=== PATIENT | female | born 1945 | race Caucasian/White ===

== ENCOUNTER 2016-10-06 16:16 | Emergency (ER) | payer OTHER ==
--- NOTE | 2016-10-06 16:27 | PDOC ---
Rapid Medical Evaluation Time Seen by Provider: 10/06/16 16:24 Medical Evaluation: Allergies Allergy/AdvReac Type Severity Reaction Status Date / Time Penicillins Allergy Mild Rash Verified 04/18/16 15:15 10/06/16 16:24 71 yo F c/o LUQ pain since yesterday which progressed into unspecific cp, herrera. 1530hrs: Finger stick: 320 1540hrs: Took metformin 1000mg
[2016-10-06 16:28] VITALS: BP 148/76; PULSE 80; TEMP 99.6; BMI 28.7
[2016-10-06 17:23] LABS: BASOPHIL 0.4 % (0-2.0); EOSINOPHIL 0.7 % (0-4.5); MCH 29.5 pg (25.7-33.7); MCHC 33.5 g/dl (32.0-36.0); MEAN CELL VOLUME 88.1 fl (80-96); MEAN PLT VOLUME 10.8 fl (7.5-11.1); NEUTROPHILS 80.4 % (42.8-82.8); PLATELET COUNT 167 K/MM3 (134-434); RDW 13.2 % (11.6-15.6); WHITE BLOOD COUNT 8.2 K/mm3 (4.0-10.0)
[2016-10-06 17:46] LABS: ALBUMIN 3.8 g/dl (3.4-5.0); ANION GAP 6 (8-16); CALCIUM 9.1 mg/dL (8.5-10.1); CO2 31 mmol/L (21-32); CREATININE 0.9 mg/dL (0.55-1.02); GLUCOSE,RANDOM 160 mg/dL (74-106); SGOT/AST 13 U/L (15-37); SGPT/ALT 21 U/L (12-78); TOT PROT 6.8 g/dl (6.4-8.2)
[2016-10-06 17:48] LABS: ALK PHOS 81 U/L (45-117); TROPONIN I < 0.02 ng/ml (0.00-0.05)
--- NOTE | 2016-10-06 19:31 | PDOC ---
History of Present Illness - General History Source: Patient Exam Limitations: No Limitations - History of Present Illness Initial Comments: 10/06/16 19:49 The patient is a 71 year old female, with a significant past medical history of GERD, HTN, diabetes and TIA, who presents to the emergency department for evaluation of a headache. Describes her headache as localized on bilateral temples, radiating to the front of her head. She notes that the pain is moderate. She denies any modifying factors. She reports that she checked her Glucose today and was 200. In the ED her glucose was 160. She also reports left upper quadrant pain and chest palpitations that are both mild in severity. She notes that both pains resolved after a bowel movement. The patient denies chest pain, shortness of breath, and dizziness. Denies fever , chills, nausea, vomit, diarrhea and constipation. Denies dysuria, frequency, urgency and hematuria. Allergies: None Past surgical history: None reported Social history: No alcohol, tobacco or drug use reported PMD - Dr. Saul Jama <Mau Garza - Last Filed: 10/06/16 20:03> <Russ Wiggins - Last Filed: 10/06/16 20:08> - General Chief Complaint: Pain Stated Complaint: PCP SENT/BLOOD PRESSURE PROBLEM Time Seen by Provider: 10/06/16 16:24 Past History <Mau Garza - Last Filed: 10/06/16 20:03> - Past Medical History Cardiac Disorders: Yes (chest pain negative cardiac cath 2006) CVA: Yes (Possible mini stroke in the 90's) Diabetes: Yes HTN: Yes - Reproductive History Cervical CA: No Dysfunctional Uterine Bleeding: No Ectopic : No Endometrial CA: No Polycystic Ovaries: No Tubal Ligation: No - Immunization History Immunization Up to Date: Yes - Psycho/Social/Smoking Cessation Hx Anxiety: No Suicidal Ideation: No Smoking Status: No Smoking History: Never smoked Have you smoked in the past 12 months: No Number of Cigarettes Smoked Daily: 0 If you are a former smoker, when did you quit?: 35 yrs ago Information on smoking cessation initiated: No Hx Alcohol Use: No Drug/Substance Use Hx: No Substance Use Type: Alcohol Hx Substance Use Treatment: No <Russ Wiggins - Last Filed: 10/06/16 20:08> - Past Medical History Allergies/Adverse Reactions: Allergies Allergy/AdvReac Type Severity Reaction Status Date / Time Penicillins Allergy Mild Rash Verified 10/06/16 16:28 Home Medications: Ambulatory Orders Aspirin [ASA -] 81 mg PO DAILY 10/11/12 Carvedilol 25 mg PO BID 03/11/14 Amlodipine Besylate [Norvasc -] 10 mg PO DAILY 07/18/15 Ondansetron [Zofran -] 4 mg PO TID PRN #21 tablet 04/18/16 Meloxicam [Mobic (Nf) -] 15 mg PO DAILY 10/06/16 Metformin HCl [Glucophage] 1,000 mg PO BID 10/06/16 Abd/GI Specific PMHX - Complaint Specific PMHX GERD: No GI Ulcer Disease: No <Russ Wiggins - Last Filed: 10/06/16 20:08> Review of Systems - Review of Systems Able to Perform ROS?: Yes Comments:: 10/06/16 19:49 GENERAL/CONSTITUTIONAL: No fever or chills. No weakness. HEAD, EYES, EARS, NOSE AND THROAT: No change in vision. No ear pain or discharge. No sore throat. CARDIOVASCULAR: No chest pain or shortness of breath RESPIRATORY: No cough, wheezing, or hemoptysis. GASTROINTESTINAL: No nausea, vomiting, diarrhea or constipation. GENITOURINARY: No dysuria, frequency, or change in urination. MUSCULOSKELETAL: No joint or muscle swelling or pain. No neck or back pain. SKIN: No rash NEUROLOGIC: +Headache. No vertigo, loss of consciousness, or change in strength/ sensation. ENDOCRINE: No increased thirst. No abnormal weight change HEMATOLOGIC/LYMPHATIC: No anemia, easy bleeding, or history of blood clots. ALLERGIC/IMMUNOLOGIC: No hives or skin allergy. <Mau Garza - Last Filed: 10/06/16 20:03> *Physical Exam - Vital Signs Last Vital Signs Temp Pulse Resp BP Pulse Ox 99.6 F 80 18 148/76 95 10/06/16 16:22 10/06/16 16:22 10/06/16 16:22 10/06/16 16:22 10/06/16 16:22 - Physical Exam Comments: 10/06/16 19:49 GENERAL: Awake, alert, and fully oriented, in no acute distress HEAD: No signs of trauma, normocephalic, atraumatic EYES: PERRLA, EOMI, sclera anicteric, conjunctiva clear ENT: Auricles normal inspection, hearing grossly normal, nares patent, oropharynx clear without exudates. Moist mucosa NECK: Normal ROM, supple, no lymphadenopathy, JVD, or masses LUNGS: No distress, speaks full sentences, clear to auscultation bilaterally HEART: Regular rate and rhythm, normal S1 and S2, no murmurs, rubs or gallops, peripheral pulses normal and equal bilaterally. ABDOMEN: Soft, nontender, normoactive bowel sounds. No guarding, no rebound. No masses EXTREMITIES: Normal inspection, Normal range of motion, no edema. No clubbing or cyanosis. NEUROLOGICAL: Cranial nerves II through XII grossly intact. Normal speech, normal gait, no focal sensorimotor deficits SKIN: Warm, Dry, normal turgor, no rashes or lesions noted. <Mau Garza - Last Filed: 10/06/16 20:03> - Vital Signs Last Vital Signs Temp Pulse Resp BP Pulse Ox 99.6 F 80 18 148/76 95 10/06/16 16:22 10/06/16 16:22 10/06/16 16:22 10/06/16 16:22 10/06/16 16:22 <Russ Wiggins - Last Filed: 10/06/16 20:08> Heart Score/ECG Review #1 ECG reviewed & interpreted by me at: 19:43 10/06/16 19:22 Ventricular rate: 71 bpm Normal sinus rhythm Left axis deviation Septal infarct, age undetermined <Mau Garza - Last Filed: 10/06/16 20:03> ED Treatment Course - LABORATORY CBC & Chemistry Diagram: 10/06/16 16:48 10/06/16 16:48 - ADDITIONAL ORDERS Additional order review: Laboratory Results 10/06/16 16:48 Sodium 139 Potassium 4.9 Chloride 102 Carbon Dioxide 31 Anion Gap 6 L BUN 21 H D Creatinine 0.9 Creat Clearance w eGFR > 60 Random Glucose 160 H Calcium 9.1 Total Bilirubin 1.0 D AST 13 L ALT 21 Alkaline Phosphatase 81 Creatine Kinase 72 Troponin I < 0.02 Total Protein 6.8 Albumin 3.8 10/06/16 16:48 RBC 5.07 MCV 88.1 MCHC 33.5 RDW 13.2 MPV 10.8 Neutrophils % 80.4 Lymphocytes % 10.7 Monocytes % 7.8 Eosinophils % 0.7 Basophils % 0.4 <Mau Garza - Last Filed: 10/06/16 20:03> - LABORATORY CBC & Chemistry Diagram: 10/06/16 16:48 10/06/16 16:48 - ADDITIONAL ORDERS Additional order review: Laboratory Results 10/06/16 16:48 Sodium 139 Potassium 4.9 Chloride 102 Carbon Dioxide 31 Anion Gap 6 L BUN 21 H D Creatinine 0.9 Creat Clearance w eGFR > 60 Random Glucose 160 H Calcium 9.1 Total Bilirubin 1.0 D AST 13 L ALT 21 Alkaline Phosphatase 81 Creatine Kinase 72 Troponin I < 0.02 Total Protein 6.8 Albumin 3.8 10/06/16 16:48 RBC 5.07 MCV 88.1 MCHC 33.5 RDW 13.2 MPV 10.8 Neutrophils % 80.4 Lymphocytes % 10.7 Monocytes % 7.8 Eosinophils % 0.7 Basophils % 0.4 <Russ Wiggins - Last Filed: 10/06/16 20:08> Medical Decision Making - Medical Decision Making 10/06/16 20:05 Patient is a well-appearing 71-year-old female with hypertension, diabetes, hyperlipidemia, presents with atraumatic bitemporal headache with dizziness that had now resolved. Patient denies the current symptoms are worse headache of her life. Serial neurological exams reveal no focal deficits. I do not suspect meningitis or subarachnoid hemorrhage at this time. Patient's left upper quadrant pain had also resolved after a bowel movement. Abdominal exam reveals no focal tenderness, there is no guarding or rebound. CBC/CMP/cardiac profile within normal limit. I do not suspect ACS/PE or an acute intra- abdominal pathology. Patient reports elevated blood sugar of 200 likely due to the fact that she had not taken her regularly scheduled metformin in the a.m. on the day of arrival. Repeated BGM in the ED was noted to be 160. This time, I do not believe they're acute issues present patient can be safely discharged to follow-up with PMD. <Russ Wiggins - Last Filed: 10/06/16 20:08> *DC/Admit/Observation/Transfer - Attestations Scribe Attestion: 10/06/16 19:50 Documentation prepared by Mau Garza, acting as medical screener for Russ Wiggins MD <Mau Garza - Last Filed: 10/06/16 20:03> - Attestations Physician Attestion: 10/06/16 20:05 The documentation was prepared by the scribe under my direct supervision. I have reviewed the documentation which correctly represents the findings, medical decision-making and critical action taken by me. <Russ Wiggins - Last Filed: 10/06/16 20:08> Diagnosis at time of Disposition: Hyperglycemia Headache Qualifiers: Headache type: unspecified Headache chronicity pattern: acute headache Intractability: not intractable Qualified Code(s): R51 - Headache - Discharge Dispostion Disposition: HOME Condition at time of disposition: Stable - Referrals Referrals: Saul Jama MD [Primary Care Provider] - - Patient Instructions Printed Discharge Instructions: DI for Headache, DI for Hyperglycemia -- Adult
--- NOTE | 2016-10-07 14:14 | EKG ---
Test Reason : Blood Pressure : / mmHG Vent. Rate : 071 BPM Atrial Rate : 071 BPM P-R Int : 144 ms QRS Dur : 090 ms QT Int : 408 ms P-R-T Axes : 050 -42 012 degrees QTc Int : 443 ms NORMAL SINUS RHYTHM LEFT AXIS DEVIATION SEPTAL INFARCT , AGE UNDETERMINED ABNORMAL ECG WHEN COMPARED WITH ECG OF 18-APR-2016 16:11, SEPTAL INFARCT IS NOW PRESENT Confirmed by JEANNE STALEY, HILARIO ([id number]) on 10/07/2016 2:13:45 PM Referred By: Confirmed By:HILARIO ANGEL MD
== END 2016-10-06 20:30 | disposition home or self-care (01) ==
LOC: JER 16:16
DX: E11.65 Type 2 diabetes mellitus with hyperglycemia (principal); R51 Headache; Z79.84 Long term (current) use of oral hypoglycemic drugs; I10 Essential (primary) hypertension; K21.9 Gastro-esophageal reflux disease without esophagitis; Z98.61 Coronary angioplasty status; Z86.73 Personal history of transient ischemic attack (TIA), and cerebral infarction without residual deficits
CPT/HCPCS: 36415; 80053; 82550; 84484; 85025; 93005; 93010; 99283-25

== ENCOUNTER 2016-11-24 15:22 | Emergency (ER) | payer OTHER ==
[2016-11-24 15:55] VITALS: TEMP 98.4; BMI 28.4
[2016-11-24] MEDS ORDERED: ACETAMINOPHEN 325 MG TABLET (FP) PO ONE (16:17)
[2016-11-24] MEDS ORDERED: MAG HYDROX/AL HYDROX/SIMETH 30 ML UNIT-DOSE CUP PO ONE (16:17)
[2016-11-24] MEDS ORDERED: SODIUM CHLORIDE 1,000 ML IV STA (16:17)
[2016-11-24] MEDS ORDERED: SUCRALFATE 1 GM TABLET (FP) PO ONE (16:17)
[2016-11-24] MEDS ORDERED: PANTOPRAZOLE 40 MG TABLET (FP) PO ONE (16:17)
[2016-11-24] MEDS ORDERED: FAMOTIDINE 20 MG/50 ML IVPB 50 ML IVPB ONE ×2 (16:17→16:45)
--- NOTE | 2016-11-24 16:24 | PDOC ---
History of Present Illness - General History Source: Patient Exam Limitations: No Limitations - History of Present Illness Initial Comments: 11/24/16 16:29 The patient is a 71 year old female presenting with her , with a significant past medical history of GERD, HTN, diabetes and TIA, who presents to the emergency department with abdominal pain for the past 2 weeks. She reports that she also has a nausea, diarrhea, headache and dizziness associated with her chief complaint. She notes that her diarrhea began 2 days ago, which is watery and nonbloody in nature. She describes her abdominal pain as localized in the left lower quadrant, ranging from mild to moderate, without radiation or modifying factors. She denies taking anything for the pain. She describes the headache as mild, without radiation or modifying factors. She notes that she has not taken anything for the pain. She denies any recent hospitalization, sick contacts or recent travel. She states that she has an appointment to get an endoscopy on 12/27/2016. The patient denies chest pain and shortness of breath. Denies fever, chills, vomit and constipation. Denies dysuria, frequency, urgency and hematuria. Allergies: Penicillin Past surgical history: None Social history: No alcohol, tobacco or drug use reported PMD - Dr Laurence Amado GI - Dr. Yves yan 12/27 <Mau Garza - Last Filed: 11/24/16 16:29> - General History Source: Patient Exam Limitations: No Limitations <Liam Obregon - Last Filed: 11/24/16 18:26> - General Chief Complaint: Pain Stated Complaint: LT ABD PAIN, NAUSEA Time Seen by Provider: 11/24/16 16:08 Past History <Mau Garza - Last Filed: 11/24/16 16:29> - Past Medical History Cardiac Disorders: Yes (chest pain negative cardiac cath 2006) CVA: Yes (Possible mini stroke in the 's) Diabetes: Yes HTN: Yes Hypercholesterolemia: Yes - Surgical History Cardiac Surgery: (cardiac cath) - Reproductive History Cervical CA: No Dysfunctional Uterine Bleeding: No Ectopic : No Endometrial CA: No Polycystic Ovaries: No Tubal Ligation: No - Immunization History Immunization Up to Date: Yes - Psycho/Social/Smoking Cessation Hx Anxiety: No Suicidal Ideation: No Smoking Status: No Smoking History: Never smoked Have you smoked in the past 12 months: No Number of Cigarettes Smoked Daily: 0 If you are a former smoker, when did you quit?: 35 yrs ago Information on smoking cessation initiated: No Hx Alcohol Use: No Drug/Substance Use Hx: No Substance Use Type: None Hx Substance Use Treatment: No <MindiLiam - Last Filed: 11/24/16 18:26> - Past Medical History Allergies/Adverse Reactions: Allergies Allergy/AdvReac Type Severity Reaction Status Date / Time Penicillins Allergy Mild Rash Verified 11/24/16 15:55 Home Medications: Ambulatory Orders Aspirin [ASA -] 81 mg PO DAILY 10/11/12 Carvedilol 25 mg PO BID 03/11/14 Amlodipine Besylate [Norvasc -] 10 mg PO DAILY 07/18/15 Ondansetron [Zofran -] 4 mg PO TID PRN #21 tablet 04/18/16 Meloxicam [Mobic (Nf) -] 15 mg PO DAILY 10/06/16 Metformin HCl [Glucophage] 1,000 mg PO BID 10/06/16 Mag Hydrox/Al Hydrox/Simeth [Mylanta Suspension -] 30 ml PO Q6H PRN #1 bottle Pantoprazole Sodium [Protonix] 40 mg PO DAILY #30 tablet. 11/24/16 Ranitidine HCl [Zantac] 150 mg PO BID PRN #20 tablet 11/24/16 Review of Systems - Review of Systems Able to Perform ROS?: Yes Comments:: 11/24/16 16:29 GENERAL/CONSTITUTIONAL: No fever or chills. No weakness. HEAD, EYES, EARS, NOSE AND THROAT: No change in vision. No ear pain or discharge. No sore throat. CARDIOVASCULAR: No chest pain or shortness of breath RESPIRATORY: No cough, wheezing, or hemoptysis. GASTROINTESTINAL: +Abdominal pain, nausea, diarrhea. No vomiting or constipation. GENITOURINARY: No dysuria, frequency, or change in urination. MUSCULOSKELETAL: No joint or muscle swelling or pain. No neck or back pain. SKIN: No rash NEUROLOGIC: +Headahce and dizziness. No loss of consciousness, or change in strength/sensation. ENDOCRINE: No increased thirst. No abnormal weight change HEMATOLOGIC/LYMPHATIC: No anemia, easy bleeding, or history of blood clots. ALLERGIC/IMMUNOLOGIC: No hives or skin allergy. <Mau Garza - Last Filed: 11/24/16 16:29> *Physical Exam - Vital Signs Last Vital Signs Temp Pulse Resp BP Pulse Ox 98.4 F 72 17 160/78 98 11/24/16 15:53 11/24/16 15:53 11/24/16 15:53 11/24/16 15:53 11/24/16 15:53 - Physical Exam Comments: 11/24/16 16:30 GENERAL: Awake, alert, and fully oriented, in no acute distress HEAD: No signs of trauma, normocephalic, atraumatic EYES: PERRLA, EOMI, sclera anicteric, conjunctiva clear ENT: Auricles normal inspection, hearing grossly normal, nares patent, oropharynx clear without exudates. Moist mucosa NECK: Normal ROM, supple, no lymphadenopathy, JVD, or masses LUNGS: No distress, speaks full sentences, clear to auscultation bilaterally HEART: Regular rate and rhythm, normal S1 and S2, no murmurs, rubs or gallops, peripheral pulses normal and equal bilaterally. ABDOMEN: +Left upper quadrant tenderness to palpation. Soft, normoactive bowel sounds. No guarding, no rebound. No masses EXTREMITIES: Normal inspection, Normal range of motion, no edema. No clubbing or cyanosis. NEUROLOGICAL: Cranial nerves II through XII grossly intact. Normal speech, normal gait, no focal sensorimotor deficits SKIN: Warm, Dry, normal turgor, no rashes or lesions noted. <Leena Garzaan Neida - Last Filed: 11/24/16 16:29> - Vital Signs Last Vital Signs Temp Pulse Resp BP Pulse Ox 98.4 F 72 17 160/78 98 11/24/16 15:53 11/24/16 15:53 11/24/16 15:53 11/24/16 15:53 11/24/16 15:53 <Liam Obregon - Last Filed: 11/24/16 18:26> ED Treatment Course - LABORATORY CBC & Chemistry Diagram: 11/24/16 16:17 11/24/16 16:17 <Liam Obregon - Last Filed: 11/24/16 18:26> Medical Decision Making - Medical Decision Making 11/24/16 16:18 A portion of this note was written by my scribe, under my supervision. Vital Signs Temp Pulse Resp BP Pulse Ox 98.4 F 72 17 160/78 98 11/24/16 15:53 11/24/16 15:53 11/24/16 15:53 11/24/16 15:53 11/24/16 15:53 71 year old female c/ hx HTN, DM, HLD presents with intermittent LUQ pain x 2 weeks. reports that the pain feels like her gastritis and is intermittent. Sometimes worse with eating. Has not taken medications for this. She did call her GI doctor, Dr. Marinelli, who scheduled an outpatient endoscopy in 5 days. However, in the last day, the patient started to develop several loose stools and nausea, but no fevers, or vomiting. denies sick contacts or recent travels. denies recent antibiotic use. Pt has LUQ pain. I suspect that this is gastritis vs. gastroenteritis. Will obtain labs, give IVF, trial GERD medications and reassess. 11/24/16 18:22 CBC, BMP 11/24/16 16:17 11/24/16 16:17 CMP Sodium 142 mmol/L (136-145) 11/24/16 16:17 Potassium 4.3 mmol/L (3.5-5.1) 11/24/16 16:17 Chloride 103 mmol/L (98-107) 11/24/16 16:17 Carbon Dioxide 31 mmol/L (21-32) 11/24/16 16:17 Anion Gap 8 (8-16) 11/24/16 16:17 BUN 23 mg/dL (7-18) H 11/24/16 16:17 Creatinine 0.9 mg/dL (0.55-1.02) 11/24/16 16:17 Creat Clearance w eGFR > 60 (>60) 11/24/16 16:17 Random Glucose 177 mg/dL (74-106) H 11/24/16 16:17 Calcium 9.4 mg/dL (8.5-10.1) 11/24/16 16:17 Magnesium 2.1 mg/dL (1.8-2.4) 11/24/16 16:17 Total Bilirubin 0.6 mg/dL (0.2-1.0) D 11/24/16 16:17 AST 14 U/L (15-37) L 11/24/16 16:17 ALT 26 U/L (12-78) D 11/24/16 16:17 Alkaline Phosphatase 80 U/L (45-117) 11/24/16 16:17 Total Protein 7.0 g/dl (6.4-8.2) 11/24/16 16:17 Albumin 3.8 g/dl (3.4-5.0) 11/24/16 16:17 Lipase 84 U/L (73-393) 11/24/16 16:17 Pt reports feeling significantly better with the GERD medications. Will d/c home with . This is likely gastritis. I discussed the physical exam findings, ancillary test results and final diagnoses with the patient. I answered all of the patient's questions. The patient was satisfied with the care received and felt comfortable with the discharge plan and treatment plan. The patient will call their primary care physician within 24 hours to arrange follow-up and will return to the Emergency Department with any new, persistant or worsening symptoms. <Liam Obregon - Last Filed: 11/24/16 18:26> *DC/Admit/Observation/Transfer - Attestations Scribe Attestion: 11/24/16 16:30 Documentation prepared by Mau Garza, acting as medical billing service for Liam Obregon MD <Mau Garza - Last Filed: 11/24/16 16:29> - Discharge Dispostion Admit: No <Liam Obregon - Last Filed: 11/24/16 18:26> Diagnosis at time of Disposition: Gastritis Qualifiers: Gastritis type: other gastritis Chronicity: acute Gastritis bleeding: without bleeding Qualified Code(s): K29.00 - Acute gastritis without bleeding - Discharge Dispostion Disposition: HOME Condition at time of disposition: Improved - Prescriptions Prescriptions: Mag Hydrox/Al Hydrox/Simeth [Mylanta Suspension -] 30 ml PO Q6H PRN #1 bottle PRN Reason: Abdominal Pain Pantoprazole Sodium [Protonix] 40 mg PO DAILY #30 tablet. Ranitidine HCl [Zantac] 150 mg PO BID PRN #20 tablet PRN Reason: GERD - Referrals Referrals: Saul Jama MD [Primary Care Provider] - Rony Marinelli MD [Staff Physician] - - Patient Instructions Printed Discharge Instructions: DI for Gastritis Additional Instructions: Please take 40 mg protonix daily. For additional relief, take 150 mg zantac every 12 hours and/or 30 cc of maalox every 6 hours as needed. Follow up with DR. Marinelli in regards to your endoscopy. Please avoid spicy or heavy foods.
[2016-11-24] MEDS ORDERED: PANTOPRAZOLE 40 MG TABLET (FP) ONE (16:44)
[2016-11-24] MEDS ORDERED: ACETAMINOPHEN 325 MG TABLET (FP) ONE (16:44)
[2016-11-24] MEDS ORDERED: SUCRALFATE 1 GM TABLET (FP) ONE (16:44)
[2016-11-24 17:27] LABS: EOSINOPHIL 1.2 % (0-4.5); MCH 29.8 pg (25.7-33.7); MCHC 33.9 g/dl (32.0-36.0); MEAN CELL VOLUME 87.9 fl (80-96); MEAN PLT VOLUME 11.8 fl (7.5-11.1); NEUTROPHILS 61.5 % (42.8-82.8); PLATELET COUNT 174 K/MM3 (134-434); WHITE BLOOD COUNT 9.5 K/mm3 (4.0-10.0)
[2016-11-24 17:28] LABS: URINE APPEARANCE CLEAR; URINE BILIRUBIN NEGATIVE (NEGATIVE); URINE BLOOD NEGATIVE (NEGATIVE); URINE COLOR LTYELLOW; URINE GLUCOSE (UA) 3+ (NEGATIVE); URINE KETONE NEGATIVE (NEGATIVE); URINE LEUK ESTERASE NEGATIVE (NEGATIVE); URINE NITRITE NEGATIVE (NEGATIVE); URINE PROTEIN NEGATIVE (NEGATIVE); URINE UROBILINOGEN NEGATIVE E.U./dl (0.2-1.0)
[2016-11-24] MEDS ORDERED: MAG HYDROX/AL HYDROX/SIMETH 30 ML UNIT-DOSE CUP ONE (17:37)
[2016-11-24 18:04] LABS: ALBUMIN 3.8 g/dl (3.4-5.0); ANION GAP 8 (8-16); BILIRUBIN,TOTAL 0.6 mg/dL (0.2-1.0); CALCIUM 9.4 mg/dL (8.5-10.1); CO2 31 mmol/L (21-32); CREATININE 0.9 mg/dL (0.55-1.02); GLUCOSE,RANDOM 177 mg/dL (74-106); MAGNESIUM 2.1 mg/dL (1.8-2.4); SGOT/AST 14 U/L (15-37); SGPT/ALT 26 U/L (12-78)
[2016-11-24 18:05] LABS: ALK PHOS 80 U/L (45-117)
[2016-11-24 18:40] VITALS: BP 150/70; PULSE 78
== END 2016-11-24 18:41 | disposition home or self-care (01) ==
LOC: JER 15:22
PROC: 3E033GC Introduction of Other Therapeutic Substance into Peripheral Vein, Percutaneous Approach (ICD-10-PCS; principal; 2016-11-24)
DX: K29.00 Acute gastritis without bleeding (principal); R51 Headache; I10 Essential (primary) hypertension; E11.9 Type 2 diabetes mellitus without complications; K21.9 Gastro-esophageal reflux disease without esophagitis; E78.00 Pure hypercholesterolemia, unspecified; Z86.73 Personal history of transient ischemic attack (TIA), and cerebral infarction without residual deficits; Z98.61 Coronary angioplasty status
CPT/HCPCS: 36415; 80053; 81003; 83690; 83735; 85025; 87086; 99282-25

== ENCOUNTER 2017-05-02 13:30 | Emergency (ER) | payer OTHER ==
[2017-05-02 13:37] VITALS: TEMP 98; BMI 28.4
[2017-05-02] MEDS ORDERED: SODIUM CHLORIDE 0.9% 1000 ML INFUS.BAG IV ONE (15:55)
[2017-05-02] MEDS ORDERED: ONDANSETRON 4 MG/2 ML VIAL IVPUSH ONE (15:55)
[2017-05-02] MEDS ORDERED: ONDANSETRON 4 MG/2 ML VIAL ONE (16:34)
--- NOTE | 2017-05-02 16:39 | PDOC ---
Attending Attestation - Resident Resident Name: Celia Skinner - ED Attending Attestation I have performed the following: I have examined & evaluated the patient, The case was reviewed & discussed with the resident, I agree w/resident's findings & plan, Exceptions are as noted - HPI HPI: 05/02/17 16:36 - Medical Decision Making 05/02/17 16:36 72 yo F with h/o CAD recent angioplasty no stents 1 mo ago, htn HLD, here with / co left upper, left mid quadrant pain. c/o loose black stool today. started todya. not felling well, some nausea no vomiting. no urinary complaints. no f/c no recent travel. takes daily asa, plavix, carvedelol, . on exam mild left mid quad ttp, no rebound no guarding. differential: uti, pyelo, colitis, gi bleed, diverticulitis. plan ct a/p labs ua pain control as needed. <Carrie Concepcion - Last Filed: 05/02/17 16:35> - HPI HPI: 05/02/17 16:40 72 y/o F with a PMHx of GERD, HTN, diabetes and TIA presents to the ED with LLQ pain and diarrhea. She reports associated nausea. Patient denies fever, chills, vomiting. - Physicial Exam PE: 05/02/17 16:41 GENERAL: Awake, alert, and fully oriented, in no acute distress HEAD: No signs of trauma EYES: PERRLA, EOMI, sclera anicteric, conjunctiva clear ENT: Auricles normal inspection, nares patent, oropharynx clear without exudates. Moist mucosa NECK: Normal ROM, supple, no lymphadenopathy, JVD, or masses LUNGS: Breath sounds equal, clear to auscultation bilaterally. No wheezes, and no crackles HEART: Regular rate and rhythm, normal S1 and S2, no murmurs, rubs or gallops ABDOMEN: Soft, normoactive bowel sounds. Left mid quadrant tenderness. No CVA tenderness. No guarding, no rebound. No masses EXTREMITIES: Normal range of motion, no edema. No clubbing or cyanosis. No cords, erythema, or tenderness. Well perfused. NEUROLOGICAL: Cranial nerves II through XII grossly intact. Normal speech. SKIN: Warm, Dry, normal turgor, no rashes or lesions noted. <Eloisa Guerin - Last Filed: 05/02/17 16:41>
[2017-05-02 16:57] LABS: BASOPHIL 0.9 % (0-2.0); EOSINOPHIL 2.1 % (0-4.5); MCH 29.3 pg (25.7-33.7); MCHC 33.2 g/dl (32.0-36.0); MEAN CELL VOLUME 88.4 fl (80-96); MEAN PLT VOLUME 11.3 fl (7.5-11.1); NEUTROPHILS 59.2 % (42.8-82.8); PLATELET COUNT 144 K/MM3 (134-434); WHITE BLOOD COUNT 7.1 K/mm3 (4.0-10.0)
[2017-05-02 17:01] LABS: URINE APPEARANCE CLEAR; URINE BILIRUBIN NEGATIVE (NEGATIVE); URINE BLOOD NEGATIVE (NEGATIVE); URINE COLOR STRAW; URINE GLUCOSE (UA) 3+ (NEGATIVE); URINE KETONE NEGATIVE (NEGATIVE); URINE LEUK ESTERASE NEGATIVE (NEGATIVE); URINE NITRITE NEGATIVE (NEGATIVE); URINE PROTEIN NEGATIVE (NEGATIVE); URINE UROBILINOGEN NEGATIVE mg/dL (0.2-1.0)
[2017-05-02 17:41] LABS: ALBUMIN 3.9 g/dl (3.4-5.0); ANION GAP 9 (8-16); CALCIUM 9.3 mg/dL (8.5-10.1); CO2 28 mmol/L (21-32); CREATININE 0.8 mg/dL (0.55-1.02); GLUCOSE,RANDOM 134 mg/dL (74-106); SGOT/AST 9 U/L (15-37); SGPT/ALT 18 U/L (12-78)
[2017-05-02 17:44] LABS: ALK PHOS 53 U/L (45-117); BILIRUBIN,TOTAL 0.8 mg/dL (0.2-1.0); TOT PROT 6.7 g/dl (6.4-8.2)
[2017-05-02 18:04] VITALS: BP 163/85; PULSE 53
--- NOTE | 2017-05-02 21:16 | PDOC ---
History of Present Illness - General Chief Complaint: Diarrhea Stated Complaint: ABD PAIN, DIZZINESS - History of Present Illness Initial Comments: 72 year old female with HTN, HLD, CAD ( recent angioplasty one month prior on asa and plavix) presenting with left lower quadrant pain, nausea, and dark diarrhea for the past few days. She describes the diarrhea as non-bloody but black. Does not admit to chest pain, palpitations, or other sick symptoms. She has had LLQ pain in the past and has been CT scanned a few times without any pathology noted. Had EGD and colostomy > 5 years prior that were also clean. HEr GI doctor is Dr. Marinelli. She has an appointment with him in a few weeks. 05/03/17 00:42 Past History - Past Medical History Allergies/Adverse Reactions: Allergies Allergy/AdvReac Type Severity Reaction Status Date / Time Penicillins Allergy Mild Rash Verified 05/02/17 13:34 Home Medications: Ambulatory Orders Aspirin [ASA -] 81 mg PO DAILY 10/11/12 Metformin HCl [Glucophage] 1,000 mg PO BID 10/06/16 Clopidogrel Bisulfate [Clopidogrel] 75 mg PO DAILY 05/02/17 Dapagliflozin Propanediol [Farxiga] 10 mg PO ASDIR 05/02/17 Lisinopril [Prinivil] 5 mg PO DAILY 05/02/17 Mag Hydrox/Al Hydrox/Simeth [Mylanta Suspension -] 30 ml PO Q6H PRN #1 bottle Metoclopramide HCl [Reglan] 5 mg PO ASDIR 05/02/17 Simvastatin [Zocor] 10 mg PO HS 05/02/17 Cardiac Disorders: Yes (chest pain negative cardiac cath 2006) CVA: Yes (Possible mini stroke in the s) Diabetes: Yes HTN: Yes Hypercholesterolemia: Yes - Surgical History Cardiac Surgery: (cardiac cath) - Reproductive History Cervical CA: No Dysfunctional Uterine Bleeding: No Ectopic : No Endometrial CA: No Polycystic Ovaries: No Tubal Ligation: No - Immunization History Immunization Up to Date: Yes - Suicide/Smoking/Psychosocial Hx Smoking Status: No Smoking History: Never smoked Have you smoked in the past 12 months: No Number of Cigarettes Smoked Daily: 0 If you are a former smoker, when did you quit?: 35 yrs ago Information on smoking cessation initiated: No Hx Alcohol Use: No Drug/Substance Use Hx: No Substance Use Type: None Hx Substance Use Treatment: No Review of Systems - Review of Systems Constitutional: No: Chills, Diaphoresis, Fever HEENTM: No: Eye Pain, Blurred Vision Respiratory: No: Cough, Orthopnea Cardiac (ROS): No: Chest Pain ABD/GI: Yes: Diarrhea, Nausea. No: Constipated, Rectal Bleeding, Vomiting Integumentary: No: Bruising, Change in Color Neurological: No: Headache, Numbness, Paresthesia *Physical Exam - Vital Signs Last Vital Signs Temp Pulse Resp BP Pulse Ox 98.0 F 53 L 18 163/85 96 05/02/17 13:34 05/02/17 18:02 05/02/17 18:02 05/02/17 18:02 05/02/17 18:02 - Physical Exam General Appearance: Yes: Nourished, Appropriately Dressed. No: Apparent Distress HEENT: positive: EOMI, SHARON, Normal ENT Inspection, Normal Voice Neck: positive: Trachea midline, Normal Thyroid, Supple. negative: Tender, Rigid Respiratory/Chest: positive: Lungs Clear, Normal Breath Sounds. negative: Chest Tender, Respiratory Distress, Accessory Muscle Use Cardiovascular: positive: Regular Rhythm, Regular Rate, S1, S2. negative: Edema , JVD, Murmur Gastrointestinal/Abdominal: positive: Normal Bowel Sounds, Tender (LLQ tenderness), Flat, Soft Extremity: positive: Normal Capillary Refill, Normal Inspection Integumentary: positive: Normal Color, Dry, Warm Neurologic: positive: Fully Oriented, Alert, Normal Mood/Affect ED Treatment Course - LABORATORY CBC & Chemistry Diagram: 05/02/17 16:20 05/02/17 16:20 - ADDITIONAL ORDERS Additional order review: Laboratory Results 05/02/17 05/02/17 05/02/17 16:30 16:20 16:20 Sodium 141 Potassium 4.0 Chloride 104 Carbon Dioxide 28 Anion Gap 9 BUN 18 D Creatinine 0.8 Creat Clearance w eGFR > 60 Random Glucose 134 H D Lactic Acid 0.7 Calcium 9.3 Total Bilirubin 0.8 D AST 9 L D ALT 18 D Alkaline Phosphatase 53 D Total Protein 6.7 Albumin 3.9 Lipase 182 Urine Color Urine Appearance Urine pH Ur Specific Paden Urine Protein Urine Glucose (UA) Urine Ketones Urine Blood Urine Nitrite Urine Bilirubin Urine Urobilinogen Stool Occult Blood Negative 05/02/17 16:20 Sodium Potassium Chloride Carbon Dioxide Anion Gap BUN Creatinine Creat Clearance w eGFR Random Glucose Lactic Acid Calcium Total Bilirubin AST ALT Alkaline Phosphatase Total Protein Albumin Lipase Urine Color Straw Urine Appearance Clear Urine pH 5.0 Ur Specific Paden <= 1.005 Urine Protein Negative Urine Glucose (UA) 3+ H Urine Ketones Negative Urine Blood Negative Urine Nitrite Negative Urine Bilirubin Negative Urine Urobilinogen Negative Stool Occult Blood 05/02/17 16:20 RBC 5.06 MCV 88.4 MCHC 33.2 RDW 13.0 MPV 11.3 H Neutrophils % 59.2 Lymphocytes % 31.8 Monocytes % 6.0 Eosinophils % 2.1 Basophils % 0.9 - Medications Given in the ED: ED Medications Discontinued Medications Generic Name Dose Route Start Last Admin Trade Name Freq PRN Reason Stop Dose Admin Ondansetron HCl 4 mg 05/02/17 15:55 05/02/17 16:40 Zofran Injection IVPUSH 05/02/17 15:56 4 mg ONCE ONE Administration Sodium Chloride 1,000 ml 05/02/17 15:55 05/02/17 16:39 Normal Saline - IV 05/02/17 15:56 1,000 ml ONCE ONE Administration Medical Decision Making - Medical Decision Making 72 year old female with abdominal pain and recent stent placement. Given her cardiac thrombotic phenomena, mesenteric ischemia could be a possibility. Also high on the differential is peptic ulcer disease, diverticulitis, or enteritis. 05/03/17 00:53 CT abdomen pelvis only significant for diverticula and labs WNL. Will DC home as she feels better with GI cocktail. Has follow up with Dr. Marinelli in a few weeks. *DC/Admit/Observation/Transfer Diagnosis at time of Disposition: Abdominal pain - Discharge Dispostion Disposition: HOME Condition at time of disposition: Good Admit: No - Prescriptions Prescriptions: Mag Hydrox/Al Hydrox/Simeth [Mylanta Suspension -] 30 ml PO Q6H PRN #1 bottle PRN Reason: Pain - Referrals Referrals: Jeffry Jimenez MD [Primary Care Provider] - Rony Marinelli MD [Staff Physician] - - Patient Instructions Additional Instructions: You were seen for abdominal pain. CT and labs were negative for anything but diverticula. Please follow up with Dr. Marinelli at your appointment next month. Please return if the maalox medicine does not help your abdominal pain.
== END 2017-05-02 21:25 | disposition home or self-care (01) ==
LOC: JER 13:30
PROC: 3E033GC Introduction of Other Therapeutic Substance into Peripheral Vein, Percutaneous Approach (ICD-10-PCS; principal; 2017-05-02)
DX: R10.32 Left lower quadrant pain (principal); I25.10 Atherosclerotic heart disease of native coronary artery without angina pectoris; I10 Essential (primary) hypertension; Z95.5 Presence of coronary angioplasty implant and graft; E11.9 Type 2 diabetes mellitus without complications; Z79.84 Long term (current) use of oral hypoglycemic drugs; K21.9 Gastro-esophageal reflux disease without esophagitis; Z86.73 Personal history of transient ischemic attack (TIA), and cerebral infarction without residual deficits; Z79.01 Long term (current) use of anticoagulants; Z79.82 Long term (current) use of aspirin
CPT/HCPCS: 36415; 74177-TC; 80053; 81003; 82272; 83605; 83690; 85025; 96374; 99282-25; Q9967

== ENCOUNTER 2017-08-25 13:03 | Emergency (ER) | payer OTHER ==
[2017-08-25 13:17] VITALS: TEMP 98.3; BMI 26.1
--- NOTE | 2017-08-25 14:07 | PDOC ---
History of Present Illness - General Chief Complaint: Chest Pain Stated Complaint: CHEST PAIN Time Seen by Provider: 08/25/17 14:07 - History of Present Illness Initial Comments: 08/25/17 17:42 The patient is a 72 year old female with a significant PMH of diabetes, hypertension, CAD s/p ?angioplasty in March 2017 (pt unsure if she has a stent , procedure was done in [place]) who presents to the emergency department with left sided chest pain, and pain in the left arm since she woke up this morning. The patient describes the left chest pain as 4/10, constant, localized on the left, sharp, and stabbing. The patient states the chest pain feels similar to her [place] last year while she was in [place]. The patient denies any alleviating or exacerbating factors for her chest pain. The patient states the chest pain has improved but still feels some slight left chest pain. The patient is complaining of associated nausea. The patient denies shortness of breath, fever , chills, nausea, vomit, diarrhea and constipation, focal weakness/numbness. Denies dysuria, frequency, urgency and hematuria. Allergies: Penicillins Past surgical history:Social history: None reported. No reported alcohol, drug, or cigarette use. PCP: Dr. Jimenez Past History - Past Medical History Allergies/Adverse Reactions: Allergies Allergy/AdvReac Type Severity Reaction Status Date / Time Penicillins Allergy Mild Rash Verified 08/25/17 13:17 Home Medications: Ambulatory Orders Aspirin [ASA -] 81 mg PO DAILY 10/11/12 Metformin HCl [Glucophage] 1,000 mg PO BID 10/06/16 Clopidogrel Bisulfate [Clopidogrel] 75 mg PO DAILY 05/02/17 Dapagliflozin Propanediol [Farxiga] 10 mg PO ASDIR 05/02/17 Lisinopril [Prinivil] 5 mg PO DAILY 05/02/17 Mag Hydrox/Al Hydrox/Simeth [Mylanta Suspension -] 30 ml PO Q6H PRN #1 bottle Metoclopramide HCl [Reglan] 5 mg PO ASDIR 05/02/17 Simvastatin [Zocor] 10 mg PO HS 05/02/17 Cardiac Disorders: Yes ([place] 2016) CVA: Yes (Possible mini stroke in the 90's) COPD: No Diabetes: Yes HTN: Yes Hypercholesterolemia: Yes - Surgical History Cardiac Surgery: (cardiac cath) - Reproductive History Cervical CA: No Dysfunctional Uterine Bleeding: No Ectopic : No Endometrial CA: No Polycystic Ovaries: No Tubal Ligation: No - Immunization History Immunization Up to Date: Yes - Suicide/Smoking/Psychosocial Hx Smoking Status: No Smoking History: Never smoked Have you smoked in the past 12 months: No Number of Cigarettes Smoked Daily: 0 If you are a former smoker, when did you quit?: 35 yrs ago Information on smoking cessation initiated: No Hx Alcohol Use: No Drug/Substance Use Hx: No Substance Use Type: None Hx Substance Use Treatment: No Review of Systems - Review of Systems Comments:: 08/25/17 17:43 GENERAL/CONSTITUTIONAL: No fever or chills. No weakness. HEAD, EYES, EARS, NOSE AND THROAT: No change in vision. No ear pain or discharge. No sore throat. GASTROINTESTINAL: No nausea, vomiting, diarrhea or constipation. GENITOURINARY: No dysuria, frequency, or change in urination. CARDIOVASCULAR: (+) Chest pain. No shortness of breath. RESPIRATORY: No cough, wheezing, or hemoptysis. MUSCULOSKELETAL: (+) Left arm pain. No joint or muscle swelling or pain. No neck or back pain. SKIN: No rash NEUROLOGIC: No headache, vertigo, loss of consciousness, or change in strength/ sensation. ENDOCRINE: No increased thirst. No abnormal weight change. HEMATOLOGIC/LYMPHATIC: No anemia, easy bleeding, or history of blood clots. ALLERGIC/IMMUNOLOGIC: No hives or skin allergy. *Physical Exam - Vital Signs Last Vital Signs Temp Pulse Resp BP Pulse Ox 98.3 F 69 17 179/73 98 08/25/17 13:13 08/25/17 13:13 08/25/17 13:13 08/25/17 13:13 08/25/17 13:13 - Physical Exam Comments: 08/25/17 17:43 GENERAL: Awake, alert, and fully oriented, in no acute distress HEAD: No signs of trauma EYES: PERRLA, EOMI, sclera anicteric, conjunctiva clear ENT: Auricles normal inspection, hearing grossly normal, nares patent, oropharynx clear without exudates. Moist mucosa NECK: Normal ROM, supple, no lymphadenopathy, JVD, or masses LUNGS: Breath sounds equal, clear to auscultation bilaterally. No wheezes, and no crackles HEART: Regular rate and rhythm, normal S1 and S2, no murmurs, rubs or gallops ABDOMEN: Soft, nontender, normoactive bowel sounds. No guarding, no rebound. No masses EXTREMITIES: Normal range of motion, no edema. No clubbing or cyanosis. No cords, erythema, or tenderness BACK: No midline spinal tenderness in cervical/thoracic/lumbar region NEUROLOGICAL: Normal speech, cranial nerves intact, negative pronator drift, 5/ 5 strength in all 4 extremities, normal sensation to light touch in all 4 extremities, normal cerebellar exam, normal gait, normal reflexes and tone SKIN: Warm, Dry, normal turgor, no rashes or lesions noted. Heart Score/ECG Review - History History: Moderately suspicious - Electrocardiogram EKG: Non specific repolarization disturbance - Age Age: >/= 65 - Risk Factors Risk Factors Heart Score: Yes Hx Hypercholesterolemia, Yes Hx Hypertension, Yes Hx Diabetes Based on the list above the patient has:: >/=3 risk factors or Hx atherosclerotic disease - Troponin Troponin: </= normal limit - Score Heart Score - Total: 6 #1 08/25/17 17:45 Twelve-lead EKG was performed and reviewed by me. Normal sinus rhythm, rate 74. Left axis deviation. No ST elevations. ED Treatment Course - LABORATORY CBC & Chemistry Diagram: 08/25/17 14:50 08/25/17 14:50 Medical Decision Making - Medical Decision Making 08/25/17 17:46 72-year-old female with multiple medical problems including coronary artery disease, takatsubo's CM, hypertension, hyperlipidemia p/w LSCP radiating to L arm. Pt is hypertensive initially to 170s systolic but BP on my exam 148/88. Exam wnl, pt states CP has resolved. EKG with L axis deviation and incomplete RBBB but no ANTON. Initial set of lab tests unremarkable, including negative troponin. Chest x-ray is unchanged from prior. Given the patient's heart score is 6 and that she is high risk for ACS, I recommended overnight admission for telemetry monitoring and serial troponins. The patient reports she does not want to stay in the hospital and will follow-up with her market sales manager Dr. Mukherjee tomorrow morning. The patient is clinically sober, free from distracting injury, appears to have intact insight and judgment and reason and in my opinion has the capacity to make decisions. The patient presents with . I have explained that I am concerned that this may represent ; they have verbalized an understanding of my concerns. I have told the patient that while their ___ were normal, they could still have ___. I have discussed the need for ____ to get more information about potential causes of the patients ___(ex: pain). I have told the patient that if they leave and have ___, they could get much worse, could become critically ill, and could possibly become disabled or . I have offered to give the patient more pain medication. I have asked them to stay in the hospital for serial ___ exams. I have offered to have an ___ instead of a __ _. I have discussed these concerns with the patients ___ (family) who is at the bedside and ___ is unable to convince them to stay for further evaluation. The patient is not willing to undergo a ____. He is unwilling to stay overnight for monitoring. He is refusing any further care and is leaving against medical advice. I am unable to convince the patient to stay, I have asked them to return as soon as possible to complete their evaluation. I have spoken with coverage for their primary care doctor in regards to their ___. I have answered all their questions. *DC/Admit/Observation/Transfer Diagnosis at time of Disposition: Chest pain - Discharge Dispostion Disposition: AGAINST MEDICAL ADVICE Condition at time of disposition: Unchanged/Unknown - Referrals Referrals: Jeffry Jimenez MD [Primary Care Provider] - - Patient Instructions Printed Discharge Instructions: DI for Chest Pain Additional Instructions: You are signing out from the hospital AGAINST MEDICAL ADVICE. This puts you at risk for worsening chest pain, a heart attack, disability, or even . Return to the emergency department at any point for further evaluation. If you do not wish to return to the hospital, please follow-up with your primary doctor and market sales manager as soon as possible. - Post Discharge Activity - Attestations Physician Attestion: 08/25/17 17:53 I, Dr. Maame Rucker MD, attest that this document has been prepared under my direction and personally reviewed by me in its entirety. I further attest, that it accurately reflects all work, treatment, procedures and medical decision -making performed by me.
[2017-08-25 15:40] LABS: BASO % 0.5 % (0-2.0); EOS % 2.6 % (0-4.5); HEMATOCRIT 43.5 % (32.4-45.2); HEMOGLOBIN 14.6 GM/dL (10.7-15.3); LYMPH % 30.6 % (8-40); MCH 29.7 pg (25.7-33.7); MCHC 33.6 g/dl (32.0-36.0); MEAN CELL VOLUME 88.4 fl (80-96); MEAN PLT VOLUME 10.9 fl (7.5-11.1); MONO % 7.7 % (3.8-10.2); NEUT % 58.6 % (42.8-82.8); PLATELET COUNT 149 K/MM3 (134-434); RBC 4.92 M/mm3 (3.60-5.2); RDW 14.2 % (11.6-15.6)
[2017-08-25 16:09] LABS: ALBUMIN 3.9 g/dl (3.4-5.0); ANION GAP 9 (8-16); BLOOD UREA NITROGEN 15 mg/dL (7-18); CALCIUM 9.2 mg/dL (8.5-10.1); CHLORIDE 103 mmol/L (98-107); CO2 29 mmol/L (21-32); CREATININE 0.8 mg/dL (0.55-1.02); GLUCOSE,RANDOM 194 mg/dL (74-106); LIPASE 103 U/L (73-393); POTASSIUM 4.4 mmol/L (3.5-5.1); SGOT/AST 10 U/L (15-37); SGPT/ALT 18 U/L (12-78); SODIUM 141 mmol/L (136-145)
--- NOTE | 2017-08-25 16:12 | EKG ---
Test Reason : Blood Pressure : / mmHG Vent. Rate : 074 BPM Atrial Rate : 074 BPM P-R Int : 130 ms QRS Dur : 102 ms QT Int : 406 ms P-R-T Axes : 052 -52 029 degrees QTc Int : 450 ms NORMAL SINUS RHYTHM LEFT AXIS DEVIATION INCOMPLETE RIGHT BUNDLE BRANCH BLOCK SEPTAL INFARCT (CITED ON OR BEFORE 06-OCT-2016) ABNORMAL ECG WHEN COMPARED WITH ECG OF 06-OCT-2016 19:22, QUESTIONABLE CHANGE IN INITIAL FORCES OF SEPTAL LEADS Confirmed by HILARIO ANGEL MD ([id number]) on 08/25/2017 4:12:03 PM Referred By: Confirmed By:HILARIO ANGEL MD
[2017-08-25 16:15] LABS: ALK PHOS 65 U/L (45-117); BILIRUBIN,TOTAL 0.8 mg/dL (0.2-1.0); N-TERMINAL BNP 597.83 pg/ml (5-125); TOT PROT 6.8 g/dl (6.4-8.2)
[2017-08-25 18:06] VITALS: BP 165/95; PULSE 74
== END 2017-08-25 18:13 | disposition left against medical advice (07) ==
LOC: JER 13:03
DX: R07.89 Other chest pain (principal); I25.2 Old myocardial infarction; I25.10 Atherosclerotic heart disease of native coronary artery without angina pectoris; Z98.61 Coronary angioplasty status; I10 Essential (primary) hypertension; E11.9 Type 2 diabetes mellitus without complications; Z79.84 Long term (current) use of oral hypoglycemic drugs; E78.00 Pure hypercholesterolemia, unspecified; Z86.73 Personal history of transient ischemic attack (TIA), and cerebral infarction without residual deficits
CPT/HCPCS: 36415; 71045-TC; 80053; 83690; 83735; 83880; 84484; 85025; 85730; 93005; 93010; 99283-25

== ENCOUNTER 2017-08-26 14:02 | Observation (INO) | payer OTHER ==
[2017-08-26 14:28] VITALS: BMI 26.5
--- NOTE | 2017-08-26 14:29 | PDOC ---
Rapid Medical Evaluation Time Seen by Provider: 08/26/17 14:24 Medical Evaluation: Allergies Allergy/AdvReac Type Severity Reaction Status Date / Time Penicillins Allergy Mild Rash Verified 08/26/17 14:25 08/26/17 14:26 I have performed a brief in-person evaluation of this patient. The patient presents with a chief complaint of: CP. Seen in ED yesterday w/ neg workup but given high score, was to be admitted overnight to tele but signed out AMA. Went to her PMD today and referred back to ED. Having CP and dizziness now. H.o HTN, HLD, CAD Cards is Dr Mukherjee Pertinent physical exam findings:Well rosalba in NAD but hypertension I have ordered the following:ekg/labs, cxr neg yesterday The patient will proceed to the ED for further evaluation. Discharge Disposition - Referrals Referrals: Jeffry Jimenez MD [Primary Care Provider] - - Patient Instructions - Post Discharge Activity
[2017-08-26 14:56] LABS: BASO % 0.8 % (0-2.0); EOS % 1.3 % (0-4.5); HEMATOCRIT 47.6 % (32.4-45.2); HEMOGLOBIN 15.9 GM/dL (10.7-15.3); LYMPH % 37.1 % (8-40); MCH 29.1 pg (25.7-33.7); MCHC 33.4 g/dl (32.0-36.0); MEAN PLT VOLUME 10.8 fl (7.5-11.1); MONO % 5.9 % (3.8-10.2); NEUT % 54.9 % (42.8-82.8); PLATELET COUNT 170 K/MM3 (134-434); RBC 5.47 M/mm3 (3.60-5.2); WHITE BLOOD COUNT 9.5 K/mm3 (4.0-10.0)
[2017-08-26 15:00] LABS: ANION GAP 11 (8-16); BLOOD UREA NITROGEN 13 mg/dL (7-18); CHLORIDE 103 mmol/L (98-107); CO2 26 mmol/L (21-32); CREATININE 0.8 mg/dL (0.55-1.02); GLUCOSE,RANDOM 164 mg/dL (74-106); SGPT/ALT 18 U/L (12-78); SODIUM 140 mmol/L (136-145); TOT PROT 7.2 g/dl (6.4-8.2)
[2017-08-26 15:03] LABS: ALK PHOS 68 U/L (45-117)
[2017-08-26 15:04] LABS: POTASSIUM 3.8 mmol/L (3.5-5.1); SGOT/AST 12 U/L (15-37)
--- NOTE | 2017-08-26 15:05 | EKG ---
Test Reason : Blood Pressure : / mmHG Vent. Rate : 069 BPM Atrial Rate : 069 BPM P-R Int : 134 ms QRS Dur : 098 ms QT Int : 402 ms P-R-T Axes : 048 -50 002 degrees QTc Int : 430 ms SINUS RHYTHM WITH PREMATURE ATRIAL COMPLEXES LEFT AXIS DEVIATION INCOMPLETE RIGHT BUNDLE BRANCH BLOCK SEPTAL INFARCT (CITED ON OR BEFORE 06-OCT-2016) ABNORMAL ECG Confirmed by MD MARTINEZ, RAVEN ([id number]) on 08/26/2017 3:05:35 PM Referred By: Confirmed By:RAVEN HENRIQUEZ MD
--- NOTE | 2017-08-26 16:06 | PDOC ---
History of Present Illness - General Chief Complaint: Chest Pain Stated Complaint: PCP SENT/ CHEST PAIN, DIZZINESS/FOLLOW UP Time Seen by Provider: 08/26/17 14:24 - History of Present Illness Initial Comments: 72 year old female with PMH of diabetes, HTN, CAD s/p possible angioplasty in 03/24 (in [place] pt unsure if she had a stent placed) presenting with left sided chest pain, dizziness, and pain in the left arm since yesterday morning. She actually came to the ED for the same symptoms yesterday without dizziness but signed out AMA after negative Troponins and no new EKG changes but heart score of 6 so dispositoned for tele obs. She saw Dr. Jimenez earlier today and had similar symptoms with worsening weakness. They gave her an aspirin and referred her to the ED. The patient describes the left chest pain as 4/10, constant, localized on the left, sharp, stabbing, and co-presenting with nausea. Yesterday she admitted the pain was similar to her [place] last year while she was in [place]. The patient denies any alleviating or exacerbating factors for her chest pain. Denies shortness of breath, fever, chills, vomiting, diarrhea and constipation, focal weakness/numbness. PCP: Dr. Jimenez 08/26/17 16:04 Past History - Past Medical History Allergies/Adverse Reactions: Allergies Allergy/AdvReac Type Severity Reaction Status Date / Time Penicillins Allergy Mild Rash Verified 08/26/17 14:25 Home Medications: Ambulatory Orders Aspirin [ASA -] 81 mg PO DAILY 10/11/12 Metformin HCl [Glucophage] 1,000 mg PO BID 10/06/16 Lisinopril [Prinivil] 5 mg PO DAILY 05/02/17 Simvastatin [Zocor] 10 mg PO HS 05/02/17 Cardiac Disorders: Yes ([place] 2017) CVA: Yes (Possible mini stroke in the 90's) COPD: No Diabetes: Yes HTN: Yes Hypercholesterolemia: Yes - Surgical History Cardiac Surgery: Yes (cardiac cath) - Reproductive History Cervical CA: No Dysfunctional Uterine Bleeding: No Ectopic : No Endometrial CA: No Polycystic Ovaries: No Tubal Ligation: No - Immunization History Immunization Up to Date: Yes - Suicide/Smoking/Psychosocial Hx Smoking Status: No Smoking History: Never smoked Have you smoked in the past 12 months: No Number of Cigarettes Smoked Daily: 0 If you are a former smoker, when did you quit?: 35 yrs ago Hx Alcohol Use: No Drug/Substance Use Hx: No Substance Use Type: None Hx Substance Use Treatment: No Review of Systems - Review of Systems Constitutional: Yes: Loss of Appetite. No: Chills, Diaphoresis, Fever, Malaise , Night Sweats, Weakness HEENTM: No: Eye Pain, Blurred Vision Respiratory: No: Cough, Shortness of Breath, Wheezing, Productive cough, Hemoptysis Cardiac (ROS): No: Chest Pain, Edema, Irregular Heart Rate, Lightheadedness, Palpitations ABD/GI: Yes: Nausea. No: Constipated, Diarrhea, Poor Appetite, Rectal Bleeding , Vomiting, Tarry Stools : No: Burning, Dysuria, Discharge, Hematuria, Incontinence, Pain, Urgency Musculoskeletal: No: Joint Swelling, Muscle Pain, Muscle Weakness, Joint Stiffness Integumentary: No: Bruising, Erythema, Lesions Neurological: No: Headache, Numbness, Paresthesia, Tremors, Weakness, Unsteady Gait, Dizziness Hematologic/Lymphatic: No: Anemia *Physical Exam - Vital Signs Last Vital Signs Temp Pulse Resp BP Pulse Ox 98.8 F 77 20 154/115 99 08/26/17 14:24 08/26/17 14:24 08/26/17 14:24 08/26/17 14:24 08/26/17 14:24 - Physical Exam General Appearance: Yes: Nourished, Appropriately Dressed. No: Apparent Distress HEENT: positive: EOMI, SHARON, Normal ENT Inspection, Normal Voice Neck: positive: Trachea midline, Normal Thyroid, Supple, Other (Full ROM without stiffness of pain). negative: Tender, Rigid Respiratory/Chest: positive: Lungs Clear, Normal Breath Sounds. negative: Chest Tender, Respiratory Distress, Accessory Muscle Use Cardiovascular: positive: Regular Rhythm, Regular Rate Gastrointestinal/Abdominal: positive: Normal Bowel Sounds, Flat, Soft. negative : Tender Musculoskeletal: positive: Normal Inspection. negative: CVA Tenderness Extremity: positive: Normal Capillary Refill, Normal Inspection, Normal Range of Motion. negative: Tender Integumentary: positive: Normal Color, Dry, Warm Neurologic: positive: Fully Oriented, Alert, Normal Mood/Affect, Normal Response , Motor Strength 5/5 ED Treatment Course - LABORATORY CBC & Chemistry Diagram: 08/26/17 14:35 08/26/17 14:35 - ADDITIONAL ORDERS Additional order review: Laboratory Results 08/26/17 14:35 Sodium 140 Potassium 3.8 Chloride 103 Carbon Dioxide 26 Anion Gap 11 BUN 13 Creatinine 0.8 Creat Clearance w eGFR > 60 Random Glucose 164 H Calcium 9.0 Total Bilirubin 1.0 D AST 12 L ALT 18 Alkaline Phosphatase 68 Creatine Kinase 74 Troponin I < 0.02 Total Protein 7.2 Albumin 4.0 08/26/17 14:35 RBC 5.47 H MCV 87.0 MCHC 33.4 RDW 14.0 MPV 10.8 Neutrophils % 54.9 Lymphocytes % 37.1 D Monocytes % 5.9 Eosinophils % 1.3 Basophils % 0.8 Medical Decision Making - Medical Decision Making 72 year old female with PMH of HTN, HLD, and reent cath (with possible angioplasty) presenting with chest pain dizziness and nausea for the past two days. She was here yesterday with similar symptoms and signed out AMA although her heart score was 6. Her troponins have been negative with unchanged EKGs x 2 days so not likely TN or NSTEMI. More likel Angina (stable vs. unstable). Gave one dose of nitro SL 0.3 for chest pain which helped. Patient admitted to hospitalist service for tele obs monitoring. 08/26/17 20:35 *DC/Admit/Observation/Transfer Diagnosis at time of Disposition: Chest pain Qualifiers: Chest pain type: unspecified Qualified Code(s): R07.9 - Chest pain, unspecified - Discharge Dispostion Condition at time of disposition: Improved Admit: Yes - Referrals - Patient Instructions - Post Discharge Activity
--- NOTE | 2017-08-26 16:44 | PDOC ---
Attending Attestation - HPI HPI: 08/26/17 17:21 The patient is a 72 year old female with past medical history of hypertension, CAD, s/p angioplasty 03/24 in [place], who presents to the ED with complaints of left sided chest pain that began this morning. The patient describes the pain as a sharp, stabbing pain that is 6/10 in severity and is localized to her left chest. It is accompanied by a feeling of lightheadedness and nausea as well as left arm numbness. She reports feeling similar to when she had an NC last year. She denies any diaphoresis or LOC. She denies any fevers or chills. PCP: Dr. Pedro Jimenez - Medical Decision Making 08/26/17 17:23 Documentation prepared by Carmela Pina, acting as infertility medical assistant for Logan Montoya MD. <Carmela Pina - Last Filed: 08/26/17 17:21> - Resident Resident Name: Celia Skinner - ED Attending Attestation I have performed the following: I have examined & evaluated the patient, The case was reviewed & discussed with the resident, I agree w/resident's findings & plan, Exceptions are as noted - Physicial Exam PE: 08/27/17 01:13 Vitals: Triage Vital signs reviewed General Appearance: no acute distress, well nourished well developed, Head: Atraumatic, Neck: Supple;No Nucal rigidity Chest Wall: Nontender Cardiac: Regular rate and rhythym, no murmurs, no rubs, no gallops, Lungs: Clear to auscultation bilateral, good air movement bilaterally, Abdomen: Soft, non distended, normal bowel sounds, non tender to palpation Genitourinary: Rectal: Exam deferred Extremities: Full range of motion to all extremities, no cyanosis, clubbing, or edema Skin: Warm and dry, no rashes or lesions, no rash, no petechiae Neuro: AOX3; Cranial Nerves 2-12 grossly intact, Strength intact to all extremities, Sensation intact to all extremities,gait normal Psych: normal mood, normal affect - Medical Decision Making 08/26/17 16:53 EKG performed at 126pmm demonstrates rate of 68, rhythm of sinus axis equal to normal. No ST elevations no T-wave inversions Heart score 6 sent for admission by PCP Currently with mild left-sided pressure-like chest pain. We'll give sublingual nitroglycerin. Nonischemic EKG troponin negative we will admit hospitalist for further management and cardiology consultation. <Logan Montoya - Last Filed: 08/27/17 01:14>
[2017-08-26] MEDS ORDERED: NITROGLYCERIN SUBLINGUAL 1/200 0.3 MG BTL SL ONE (16:54)
--- NOTE | 2017-08-26 18:46 | HP ---
CHIEF COMPLAINT: Chest pain PCP: Dr. Jimenez HISTORY OF PRESENT ILLNESS: 72 year-old female with a PMH significant for HTN, HLD, CAD s/p CT (2016) s/p cardiac cath 03/2017 ([place]), NIDDM, and GERD, who presented to the ED yesterday, 08/25/17, with a complaint of left-sided chest pain. Initial troponin was negative, CXR showed cardiomegaly, and ECG not suggestive of acute ischemic event. Patient was advised she should be kept under observation to complete the workup but she signed out AMA (patient says she was scared). Patient went to see her PCP today Dr. Jimenez. She was given an aspirin and referred back to the ED. On re-presentation today she reports left-sided sharp, stabbing, 6/10 chest pain, left arm numbness, lightheadedness, and nausea. She also reports over the past 3 days she has experienced MCCONNELL climbing the 10 steps to her apartment and when cleaning her house. She always sleeps on 2 pillows and this has not changed. She denies PND and lower extremity edema. ER course was notable for: (1) Troponin neg x 1 (2) Nitro SL x 1 (3) ECG not suggestive of ischemic event Recent Travel: No PAST MEDICAL HISTORY: Hypertension Hyperlipidemia Coronary artery disease s/p CT Takatsubo's cardiomyopathy PAST SURGICAL HISTORY: Appendectomy Cataract removal Hysterectomy Social History: Smoking: never Alcohol: no Drugs: no Family History: Allergies Penicillins Allergy (Mild, Verified 08/26/17 14:25) Rash HOME MEDICATIONS: Home Medications Medication Instructions Recorded Aspirin [ASA -] 81 mg PO DAILY 10/11/12 Metformin HCl [Glucophage] 1,000 mg PO BID 10/06/16 Lisinopril [Prinivil] 5 mg PO DAILY 05/02/17 Simvastatin [Zocor] 10 mg PO HS 05/02/17 REVIEW OF SYSTEMS CONSTITUTIONAL: Absent: fever, chills, diaphoresis, generalized weakness, malaise, loss of appetite, weight change HEENT: Absent: rhinorrhea, nasal congestion, throat pain, throat swelling, difficulty swallowing, mouth swelling, ear pain, eye pain, visual changes CARDIOVASCULAR: +chest pain, MCCONNELL Absent: syncope, palpitations, irregular heart rate, lightheadedness, peripheral edema RESPIRATORY: Absent: cough, shortness of breath, dyspnea with exertion, orthopnea, wheezing, stridor, hemoptysis GASTROINTESTINAL: Absent: abdominal pain, abdominal distension, nausea, vomiting, diarrhea, constipation, melena, hematochezia GENITOURINARY: Absent: dysuria, frequency, urgency, hesitancy, hematuria, flank pain, genital pain MUSCULOSKELETAL: Absent: myalgia, arthralgia, joint swelling, back pain, neck pain SKIN: Absent: rash, itching, pallor HEMATOLOGIC/IMMUNOLOGIC: Absent: easy bleeding, easy bruising, lymphadenopathy, frequent infections ENDOCRINE: Absent: unexplained weight gain, unexplained weight loss, heat intolerance, cold intolerance NEUROLOGIC: +left arm numbness Absent: headache, focal weakness or paresthesias, dizziness, unsteady gait, seizure, mental status changes, bladder or bowel incontinence PSYCHIATRIC: Absent: anxiety, depression, suicidal or homicidal ideation, hallucinations. PHYSICAL EXAMINATION Vital Signs - 24 hr 08/26/17 08/26/17 08/26/17 14:24 16:12 17:09 Temperature 98.8 F Pulse Rate 77 Pulse Rate [ 66 Apical] Respiratory 20 18 Rate Blood Pressure 154/115 Blood Pressure 158/74 [Left Arm] O2 Sat by Pulse 99 98 100 Oximetry (%) GENERAL: Awake, alert, and fully oriented, in no acute distress. HEAD: Normal with no signs of trauma. EYES: Pupils equal, round and reactive to light, extraocular movements intact, sclera anicteric, conjunctiva clear. No lid lag. EARS, NOSE, THROAT: Ears normal, nares patent, oropharynx clear without exudates. Moist mucous membranes. NECK: Normal range of motion, supple without lymphadenopathy, JVD, or masses. LUNGS: Breath sounds equal, clear to auscultation bilaterally. No wheezes, and no crackles. No accessory muscle use. HEART: Regular rate and rhythm, normal S1 and S2; no tenderness elicited ABDOMEN: Soft, nontender, not distended, normoactive bowel sounds, no guarding, no rebound, no masses. MUSCULOSKELETAL: Normal range of motion at all joints. No bony deformities or tenderness. No CVA tenderness. UPPER EXTREMITIES: 2+ pulses, warm, well-perfused. No cyanosis. No clubbing. No peripheral edema. LOWER EXTREMITIES: 2+ pulses, warm, well-perfused. No calf tenderness. No peripheral edema. NEUROLOGICAL: Cranial nerves II-XII intact. Normal speech. Laboratory Results - last 24 hr 08/26/17 08/26/17 14:35 14:35 WBC 9.5 D RBC 5.47 H Hgb 15.9 H Hct 47.6 H MCV 87.0 MCH 29.1 MCHC 33.4 RDW 14.0 Plt Count 170 MPV 10.8 Neutrophils % 54.9 Lymphocytes % 37.1 D Monocytes % 5.9 Eosinophils % 1.3 Basophils % 0.8 Sodium 140 Potassium 3.8 Chloride 103 Carbon Dioxide 26 Anion Gap 11 BUN 13 Creatinine 0.8 Creat Clearance w eGFR > 60 Random Glucose 164 H Calcium 9.0 Total Bilirubin 1.0 D AST 12 L ALT 18 Alkaline Phosphatase 68 Creatine Kinase 74 Troponin I < 0.02 Total Protein 7.2 Albumin 4.0 Home Medications Medication Instructions Recorded Aspirin [ASA -] 81 mg PO DAILY 10/11/12 Metformin HCl [Glucophage] 1,000 mg PO BID 10/06/16 Lisinopril [Prinivil] 5 mg PO DAILY 05/02/17 Simvastatin [Zocor] 10 mg PO HS 05/02/17 ASSESSMENT/PLAN 72 year-old female with a PMH significant for HTN, HLD, CAD s/p CT (2016) s/p cardiac cath 03/2017 ([place]), NIDDM and GERD. Placed on observation for chest pain, dizziness, and MCCONNELL x 3 days. Chest Pain --troponin neg x 1, two pending --ECG not suggestive of acute ischemic event --Echo ordered --keep NPO after midnight on Tuesday for possible stress on Tuesday --statin, ASA, start low dose beta philip, subl nitrog PRN --telemetry monitoring --patient follows with Dr. Mukherjee Dizziness --CT head negative --US carotids ordered --check orthostatics Cardiomegaly Decreased exercise tolerance --Echo ordered --BNP pending --appears euvolemic Hypertension --BP elevated --continue home lisinopril 10; start low dose metoprolol 12.5mg BID Hyperlipidemia --statin Coronary artery disease s/p CT --last cath 03/2017; does not know if stent placed --continue ASA, beta philip, statin --echo pending --possible stress on Tuesday NIDDM --Novolog sliding scale coverage GERD --protonix DVT prophylaxis: lovenox, oob, ambulation Visit type - Emergency Visit Emergency Visit: Yes ED Registration Date: 08/26/17 Care time: The patient presented to the Emergency Department on the above date and was hospitalized for further evaluation of their emergent condition. - New Patient This patient is new to me today: Yes Date on this admission: 08/26/17 - Critical Care Critical Care patient: No
[2017-08-26] MEDS ORDERED: NITROGLYCERIN SUBLINGUAL 1/150 0.4 MG TAB SL PRN (21:28)
[2017-08-26] MEDS ORDERED: PATIENT'S OWN MEDICATION (NON-FORMULARY) (Simvastatin 10 MG) PO SCH (22:00)
[2017-08-27] MEDS ORDERED: INSULIN (NOVOLOG) ASPART 100 UNITS/ML 10ML VIAL ONE ×2 (00:02→06:51)
[2017-08-27] MEDS: INSULIN SLIDING SCALE (NOVOLOG) 1 VIAL SQ SCH ×5 (00:04→22:40)
[2017-08-27] MEDS: METOPROLOL TARTRATE 25 MG TABLET (FP) PO SCH ×3 (00:04→22:40)
[2017-08-27] MEDS: ATORVASTATIN CA 10 MG TABLET (FP) PO SCH ×2 (00:05→22:40)
[2017-08-27] MEDS ORDERED: ACETAMINOPHEN 325 MG TABLET (FP) ONE (04:24)
[2017-08-27] MEDS ORDERED: METOCLOPRAMIDE HCL INJECTION 10 MG/2 ML VIAL ONE (04:24)
[2017-08-27 07:13] LABS: BASO % 0.9 % (0-2.0); EOS % 3.5 % (0-4.5); HEMATOCRIT 44.8 % (32.4-45.2); HEMOGLOBIN 14.4 GM/dL (10.7-15.3); MCH 28.6 pg (25.7-33.7); MCHC 32.2 g/dl (32.0-36.0); MEAN CELL VOLUME 88.8 fl (80-96); MEAN PLT VOLUME 11.1 fl (7.5-11.1); MONO % 10.1 % (3.8-10.2); NEUT % 46.5 % (42.8-82.8); PLATELET COUNT 142 K/MM3 (134-434); RBC 5.04 M/mm3 (3.60-5.2); RDW 14.2 % (11.6-15.6); WHITE BLOOD COUNT 6.1 K/mm3 (4.0-10.0)
[2017-08-27 07:57] LABS: CHOLESTEROL 150 mg/dL (50-200); LDL CHOLESTEROL (ONLY SJRH) 81 mg/dL (5-100); TRIGLYCERIDES 154 mg/dL (35-160)
[2017-08-27 07:58] LABS: HDL CHOLESTEROL 50 mg/dL (40-60)
[2017-08-27 08:03] LABS: ALBUMIN 3.4 g/dl (3.4-5.0); ANION GAP 8 (8-16); CHLORIDE 104 mmol/L (98-107); CO2 29 mmol/L (21-32); GLUCOSE,RANDOM 186 mg/dL (74-106); MAGNESIUM 1.9 mg/dL (1.8-2.4); POTASSIUM 4.7 mmol/L (3.5-5.1); SODIUM 141 mmol/L (136-145)
[2017-08-27 08:18] LABS: ALK PHOS 59 U/L (45-117); BILIRUBIN,TOTAL 1.1 mg/dL (0.2-1.0); BLOOD UREA NITROGEN 18 mg/dL (7-18); CALCIUM 8.7 mg/dL (8.5-10.1); CREATININE 0.7 mg/dL (0.55-1.02); N-TERMINAL BNP 486.67 pg/ml (5-125); SGOT/AST 11 U/L (15-37); SGPT/ALT 16 U/L (12-78); TOT PROT 6.4 g/dl (6.4-8.2)
--- NOTE | 2017-08-27 12:11 | CONSULT ---
Consult - text type - Consultation Consultation Note: Dr. Gómez (Cardiology) Covering Dr. Mukherjee Patient seen and examined in ED Chief complaint: Chest pain HPI: 72 yo female with history of DMT2, prior TIA in 1988 and hypertension. Is followed by Dr. Mukherjee from CV perspective and last seen about 1 week ago. Now presents to the [facility] ED with chest pain episode. Pain started 4 days ago of 4/ 10 intensity located in mid sternal area associated with nausea. Associated left hand numbness and dizziness. Came to the ED and signed out AMA because she was scared. Saw her PMD who sent her back to the ED. She has had chronic chest pain since 1988 and experiences these symptoms every few months. She was last seen here in 2014 for similar episode and underwent stress MPI and echo that were essentially negative. She reports that she underwent a catheterization in March 2017 while in [place]. Does not recall if she received a a stent, but she was not prescribed DAPT or any further antiplatelet therapy other then aspirin so unlikely PCI. She also reports that in 2006 also reports having a stress test and cath. She denies any slurred speech, focal weakness, blurred vision, or syncope (+) occasional palpitations. She denies fevers, chills, or night sweats. She denies diarrhea, constipation, nausea, vomiting, melena, hematochezia, hemetemesis, or hematuria. She denies having a cough and otherwise a comprehensive review of systems was obtained and is noted negative unless noted above. In ED Trop negative x 3 Allergies: Penicillin- rash Social history: She reports socail alcohol use. She denies tobacco and drug use , with 4 children Family Hx: Mother with CAD and NV at 89 yo, Father lived to 100 and from pneumonia. Medications reviewed PE: VS 134/78mmHg, T 98.5, Pulse 89/min, sO2 98% RA and RR 19/min Her overall general appearance was normal for her stated age. The eyes had no xanthelasma. The neck had no jugular venous distension without masses or thyromegally. There was a normal carotid upstroke with no carotid bruits bilaterally. The mouth had no cyanosis or pallor. The respiratory and musculoskeletal systems had normal excursion and effort with no kyphosis or scoliosis and the lungs zheng were clear to auscultation bilaterally. The cardiac PMI was non displaced. The rate was regular with normal S1 and S2 and no murmurs noted. The abdomen was soft without masses or tenderness. There was no organomegaly and the abdominal aorta was not enlarged by palpation. Extremities had no clubbing or cyanosis and no edema was noted. The skin had no ulcerations, rashes or nodules on palpation and neurologically she was oriented to place and time with appropriate insight to her current health status. DATA: ECG: Done at 09:59 on 08/27/2017 NSR at 72/min with Left axis deviation ( unchanged from prior ECGs) LABS: BUN/Cr 18/0.7, Hgb 15.9, BNP 486 Stress in 2014 with apical thinning Echo Normal LV, moderate TR and RVSP 30-40mmHg. CXR with cardiomegally IMP/PLAN 1. Atyical chest pain -Sounds more musculoskeletal/cervical spine? -Doubt she had PCI at her last cath as not on DAPT -She has ruled out with 3 negative cardiac enzymes -Her ECG is unchanged -No further testing indicated at this time -Would be helpful to obtain cath report from [place] (but can be done as outpatient) -Can be discharged from [facility] -Should resume all outpatient meds and follow up with PMD 2) Cardiomegally -Euvolemic on exam today -Does have an elevated BNP -Monitor 3) HTN -Resume outpatient antihypertensive regimen
[2017-08-27] MEDS: LISINOPRIL 5 MG TABLET (FP) PO SCH (12:31)
[2017-08-27] MEDS: ENOXAPARIN NA (PORCINE) 40 MG/0.4 ML DISP.SYRIN SQ SCH (12:31)
[2017-08-27] MEDS: ASPIRIN 81 MG CHEWABLE TABLETS PO SCH (12:31)
--- NOTE | 2017-08-27 15:20 | EKG ---
Test Reason : Blood Pressure : / mmHG Vent. Rate : 072 BPM Atrial Rate : 072 BPM P-R Int : 146 ms QRS Dur : 092 ms QT Int : 408 ms P-R-T Axes : 047 -53 -07 degrees QTc Int : 446 ms NORMAL SINUS RHYTHM LEFT AXIS DEVIATION ABNORMAL ECG WHEN COMPARED WITH ECG OF 26-AUG-2017 14:07, PREMATURE ATRIAL COMPLEXES ARE NO LONGER PRESENT CRITERIA FOR SEPTAL INFARCT ARE NO LONGER PRESENT Confirmed by Maged Solitario ([id number]) on 08/27/2017 3:20:01 PM Referred By: Rachael STALLINGS Confirmed By:Maged Solitario
[2017-08-28] MEDS: INSULIN SLIDING SCALE (NOVOLOG) 1 VIAL SQ SCH ×2 (07:01→11:18)
[2017-08-28 07:40] VITALS: TEMP 97.5
[2017-08-28 08:09] VITALS: BP 122/69; PULSE 69
[2017-08-28] MEDS: LISINOPRIL 5 MG TABLET (FP) PO SCH (09:31)
[2017-08-28] MEDS: ASPIRIN 81 MG CHEWABLE TABLETS PO SCH (09:31)
[2017-08-28] MEDS: METOPROLOL TARTRATE 25 MG TABLET (FP) PO SCH (09:31)
[2017-08-28] MEDS: ENOXAPARIN NA (PORCINE) 40 MG/0.4 ML DISP.SYRIN SQ SCH (09:32)
--- NOTE | 2017-08-28 11:22 | PN ---
Progress Note, Physician History of Present Illness: Episode of chest pain last evening Substernal chest pain location that improved with SLNTG No chest pain this AM - Current Medication List Current Medications: Active Medications Aspirin (Asa -) 81 mg PO DAILY [facility] Last Admin: 08/28/17 09:31 Dose: 81 mg Atorvastatin Calcium (Lipitor -) 10 mg PO HS [facility] Last Admin: 08/27/17 22:40 Dose: 10 mg Enoxaparin Sodium (Lovenox -) 40 mg SQ DAILY [facility] Last Admin: 08/28/17 09:32 Dose: 40 mg Insulin Aspart (Novolog Vial Sliding Scale -) 1 vial SQ ACHS [facility] PRN Reason: Protocol Last Admin: 08/28/17 11:18 Dose: 4 unit Lisinopril (Prinivil) 5 mg PO DAILY [facility] Last Admin: 08/28/17 09:31 Dose: 5 mg Metoprolol Tartrate (Lopressor -) 12.5 mg PO BID [facility] Last Admin: 08/28/17 09:31 Dose: 12.5 mg Nitroglycerin (Nitrostat -) 0.4 mg SL Q5M PRN PRN Reason: FOR CHEST PAIN Last Admin: 08/27/17 20:23 Dose: 0.4 mg - Objective Vital Signs: Vital Signs Temperature 97.5 F L 08/28/17 08:08 Pulse Rate 69 08/28/17 08:08 Respiratory Rate 20 08/28/17 08:10 Blood Pressure 122/69 08/28/17 08:08 O2 Sat by Pulse Oximetry (%) 97 08/28/17 08:10 Constitutional: Yes: No Distress Eyes: Yes: WNL HENT: Yes: WNL Neck: Yes: WNL Cardiovascular: Yes: Regular Rate and Rhythm Respiratory: Yes: Regular, CTA Bilaterally Gastrointestinal: Yes: Normal Bowel Sounds Musculoskeletal: Yes: WNL Extremities: Yes: WNL Labs: CBC, BMP 08/27/17 06:19 08/27/17 06:19 Assessment/Plan 72 yo female Known CV risk factors with uncontrolled DM Now admitted with chest pain 1. Chest pain -Sounds more musculoskeletal/cervical spine? but improving with SLNTG clouding picture -Doubt she had PCI at her last cath in March 2017 as not on DAPT -She has ruled out with 3 negative cardiac enzymes -Her ECG is unchanged -No further testing indicated at this time. Instead, I would recommend obtaining copy of the cath report that was done in March 2017 to evaluate her ASCVD. -Should resume all outpatient meds 2) Cardiomegally -Euvolemic on exam today -Does have an elevated BNP, can given single dose of lasix 20mg IV. -Monitor 3) HTN -Resume outpatient antihypertensive regimen
--- NOTE | 2017-08-28 12:03 | DS ---
Physical Examination Vital Signs: Vital Signs Temperature 97.5 F L 08/28/17 08:08 Pulse Rate 69 08/28/17 08:08 Respiratory Rate 20 08/28/17 08:10 Blood Pressure 122/69 08/28/17 08:08 O2 Sat by Pulse Oximetry (%) 97 08/28/17 08:10 Constitutional: Yes: Well Nourished, No Distress, Calm Cardiovascular: Yes: Regular Rate and Rhythm Respiratory: Yes: Regular Neurological: Yes: Alert, Oriented Psychiatric: Yes: Alert, Oriented Labs: CBC, BMP 08/27/17 06:19 08/27/17 06:19 Discharge Summary Reason For Visit: CHEST PAIN Current Active Problems Chest pain (Acute) Hospital Course: 72 year old female with PMH of diabetes, HTN, CAD s/p possible angioplasty in (in [place] pt unsure if she had a stent placed) presenting with left sided chest pain, dizziness, and pain in the left arm since yesterday morning. She actually came to the ED for the same symptoms yesterday without dizziness but signed out AMA after negative Troponins and no new EKG changes but heart score of 6 so dispositoned for tele obs. She saw Dr. Jimenez earlier today and had similar symptoms with worsening weakness. They gave her an aspirin and referred her to the ED. The patient describes the left chest pain as 4/10, constant, localized on the left, sharp, stabbing, and co-presenting with nausea. Yesterday she admitted the pain was similar to her MD last year while she was in [place]. The patient denies any alleviating or exacerbating factors for her chest pain. Denies shortness of breath, fever, chills, vomiting, diarrhea and constipation, focal weakness/numbness. PCP: Dr. Jimenez Condition: Improved - Instructions Diet, Activity, Other Instructions: Resume previous diet and activities Follow-up with aerial tram operator for further diagnostic testing. Referrals: Jeffry Jimenez MD [Primary Care Provider] - Disposition: HOME - Home Medications Comprehensive Discharge Medication List: Ambulatory Orders Aspirin [ASA -] 81 mg PO DAILY 10/11/12 Metformin HCl [Glucophage] 1,000 mg PO BID 10/06/16 Lisinopril [Prinivil] 5 mg PO DAILY 05/02/17 Simvastatin [Zocor] 10 mg PO HS 05/02/17
[2017-08-28] MEDS ORDERED: FUROSEMIDE 20 MG TABLET (FP) PO ONE (12:45)
== END 2017-08-28 13:34 | disposition home or self-care (01) ==
LOC: JER 14:02 → JERBED 17:12 → J4W 08-27 16:00
PROVIDERS: ADMIT Internal Medicine; ATTEND Family Medicine
PROC: 3E013VG Introduction of Insulin into Subcutaneous Tissue, Percutaneous Approach (ICD-10-PCS; principal; 2017-08-26)
PROC: 3E013GC Introduction of Other Therapeutic Substance into Subcutaneous Tissue, Percutaneous Approach (ICD-10-PCS; 2017-08-26)
DX: R07.9 Chest pain, unspecified (principal); R42 Dizziness and giddiness; I10 Essential (primary) hypertension; I25.2 Old myocardial infarction; I51.81 Takotsubo syndrome; I25.10 Atherosclerotic heart disease of native coronary artery without angina pectoris; K21.9 Gastro-esophageal reflux disease without esophagitis; E78.5 Hyperlipidemia, unspecified; E11.9 Type 2 diabetes mellitus without complications; Z88.0 Allergy status to penicillin; Z79.82 Long term (current) use of aspirin; Z79.84 Long term (current) use of oral hypoglycemic drugs; Z90.710 Acquired absence of both cervix and uterus; Z90.89 Acquired absence of other organs; Z98.61 Coronary angioplasty status
CPT/HCPCS: 36415; 70450-TC; 80053; 80061; 82550; 82962; 83036; 83721; 83735; 83880; 84443; 84484; 85025; 93005; 93010; 93880-TC; 96372; 99285-25; G0378

== ENCOUNTER 2018-09-30 10:42 | Emergency (ER) | payer OTHER ==
[2018-09-30 11:00] VITALS: BMI 26.4
[2018-09-30 12:24] LABS: URINE APPEARANCE CLEAR; URINE BILIRUBIN NEGATIVE (<2.0 mg/dL); URINE COLOR STRAW; URINE GLUCOSE (UA) NEGATIVE (NEGATIVE); URINE KETONE NEGATIVE (NEGATIVE); URINE LEUK ESTERASE 3+ (NEGATIVE); URINE NITRITE NEGATIVE (NEGATIVE); URINE PROTEIN NEGATIVE (NEGATIVE); URINE UROBILINOGEN NEGATIVE mg/dL (0.2-1.0)
--- NOTE | 2018-09-30 12:25 | PDOC ---
History of Present Illness - General Chief Complaint: Pain Stated Complaint: LOWER ABD PAIN Time Seen by Provider: 09/30/18 11:18 - History of Present Illness Initial Comments: 09/30/18 13:23 The patient is a 73 year old female with a significant past medical history of diabetes, hypertension, hyperlipidemia, CAD([place] 2016 s/p cath), TIA, GERD, and Takotsubo's cardiomyopathy who presents to the emergency department with lower abdominal pain for 2 days. The patient describes her abdominal pain as a burning sensation thats non- radiating. The patient reports some associated dysuria, bilateral lower back pain and nausea. She also reports some night sweats. The patient denies any other symptoms she denies any fever, chills, vomiting, diarrhea, or urinary symptoms. She denies any chest pain, shortness of breath, headache , dizziness, weakness, or recent trauma/injury. Past History - Past Medical History Allergies/Adverse Reactions: Allergies Allergy/AdvReac Type Severity Reaction Status Date / Time Penicillins Allergy Mild Rash Verified 09/30/18 11:00 Home Medications: Ambulatory Orders Aspirin [ASA -] 81 mg PO DAILY 10/11/12 Metformin HCl [Glucophage] 1,000 mg PO BID 10/06/16 Lisinopril [Prinivil] 5 mg PO DAILY 05/02/17 Simvastatin [Zocor -] 10 mg PO HS 05/02/17 Metoprolol Tartrate [Lopressor -] 12.5 mg PO BID #30 tablet 08/28/17 Metoprolol Tartrate [Lopressor -] 12.5 mg PO BID #30 tablet 08/30/17 Phenazopyridine HCl [Pyridium] 200 mg PO TID #5 tablet 09/30/18 Sulfamethoxazole/Trimethoprim [Bactrim Ds Tablet] 1 each PO BID #28 tablet 09/30 Cardiac Disorders: Yes ([place] 2016) CVA: Yes (Possible mini stroke in the 's) COPD: No Diabetes: Yes HTN: Yes Hypercholesterolemia: Yes - Surgical History Cardiac Surgery: Yes (cardiac cath) - Reproductive History Cervical CA: No Dysfunctional Uterine Bleeding: No Ectopic : No Endometrial CA: No Polycystic Ovaries: No Tubal Ligation: No - Immunization History Immunization Up to Date: Yes - Suicide/Smoking/Psychosocial Hx Smoking Status: No Smoking History: Never smoked Have you smoked in the past 12 months: No Number of Cigarettes Smoked Daily: 0 If you are a former smoker, when did you quit?: 35 yrs ago Hx Alcohol Use: No Drug/Substance Use Hx: No Substance Use Type: None Hx Substance Use Treatment: No Review of Systems - Review of Systems Comments:: 09/30/18 13:24 GENERAL/CONSTITUTIONAL: No fever or chills. No weakness. HEAD, EYES, EARS, NOSE AND THROAT: No change in vision. No ear pain or discharge. No sore throat. GASTROINTESTINAL:(+)nausea. No vomiting, diarrhea or constipation. GENITOURINARY: (+)dysuria.No frequency, or change in urination. CARDIOVASCULAR: No chest pain or shortness of breath. RESPIRATORY: No cough, wheezing, or hemoptysis. MUSCULOSKELETAL:(+)bilateral lower back pain. No joint or muscle swelling or pain. No neck pain. SKIN: No rash NEUROLOGIC: No vertigo, loss of consciousness, or change in strength/sensation. ENDOCRINE: (+)night sweats. No increased thirst. No abnormal weight change. HEMATOLOGIC/LYMPHATIC: No anemia, easy bleeding, or history of blood clots. ALLERGIC/IMMUNOLOGIC: No hives or skin allergy. *Physical Exam - Vital Signs Last Vital Signs Temp Pulse Resp BP Pulse Ox 99.0 F 81 18 160/77 97 09/30/18 10:57 09/30/18 10:57 09/30/18 10:57 09/30/18 10:57 09/30/18 10:57 - Physical Exam Comments: 09/30/18 13:24 GENERAL: Awake, alert, and fully oriented, in no acute distress. Non toxic EYES: PERRLA, EOMI, sclera anicteric, conjunctiva clear ENT: Moist mucosa NECK: Normal ROM, supple, no lymphadenopathy, JVD, or masses LUNGS: Breath sounds equal, clear to auscultation bilaterally. No wheezes, and no crackles HEART: Regular rate and rhythm, normal S1 and S2, no murmurs, rubs or gallops ABDOMEN: Soft, +suprapubic ttp, no LLQ/RLQ or upper abd ttp, normoactive bowel sounds. No guarding, no rebound. No masses. No CVAT EXTREMITIES: Normal range of motion, no edema. No cords, erythema, or tenderness. WWP BACK: No midline cervical, thoracic, or lumbar ttp NEUROLOGICAL: Normal speech, cranial nerves intact, equal strength and sensation b/l SKIN: +midline vertical lower abd scar is c/d/i Moderate Sedation - Procedure Monitoring Vital Signs: Procedure Monitoring Vital Signs Temperature 99.0 F 09/30/18 10:57 Pulse Rate 81 09/30/18 10:57 Respiratory Rate 18 09/30/18 10:57 Blood Pressure 160/77 09/30/18 10:57 O2 Sat by Pulse Oximetry (%) 97 09/30/18 10:57 Medical Decision Making - Medical Decision Making 09/30/18 13:34 73yo F presents to the ED with 2 days of urinary, frequency, suprapubic pain, and nausea. Vitals unremarkable, rpt BP 133/68. Exam with well appearing pt with suprapbic ttp. UA+ for UTI. In light of nausea, lower back pain, will treat as uncomplicated pyelonephritis with bactrim for 2 weeks. Pt tolerating PO. I discussed the physical exam findings, ancillary test results and final diagnoses with the patient. I answered all of the patient's questions. The patient was satisfied with the care received and felt comfortable with the discharge plan and treatment plan. The patient will call their primary care physician within 24 hours to arrange follow-up and will return to the Emergency Department with any new, persistent or worsening symptoms. *DC/Admit/Observation/Transfer Diagnosis at time of Disposition: Urinary tract bacterial infections, Abdominal pain, Nausea - Discharge Dispostion Disposition: HOME Condition at time of disposition: Stable Decision to Admit order: No - Prescriptions Prescriptions: Phenazopyridine HCl [Pyridium] 200 mg PO TID #5 tablet Sulfamethoxazole/Trimethoprim [Bactrim Ds Tablet] 1 each PO BID #28 tablet - Referrals Referrals: Jeffry Jimenez MD [Primary Care Provider] - - Patient Instructions Printed Discharge Instructions: DI for Urinary Tract Infection (UTI) Additional Instructions: Take your medications as prescribed. Follow up with your primary doctor within 1 -2 days. Return to the emergency department if you have any new, worsening, or concerning symptoms. - Post Discharge Activity - Attestations Physician Attestion: 09/30/18 13:39 I, Dr. Maame Rucker MD, attest that this document has been prepared under my direction and personally reviewed by me in its entirety. I further attest, that it accurately reflects all work, treatment, procedures and medical decision -making performed by me.
[2018-09-30 12:55] LABS: EPI CELLS RARE /HPF (FEW); URINE BACTERIA RARE /hpf (NONE SEEN)
[2018-09-30] MEDS ORDERED: PHENAZOPYRIDINE HCL 100 MG TABLET (FP) PO ONE (13:21)
[2018-09-30] MEDS ORDERED: SULFAMETHOXAZOLE/TRIMETHOPRIM 800MG/160MG D.S. TABLET PO ONE (13:22)
[2018-09-30] MEDS ORDERED: PHENAZOPYRIDINE HCL 100 MG TABLET (FP) ONE (13:26)
[2018-09-30] MEDS ORDERED: SULFAMETHOXAZOLE/TRIMETHOPRIM 800MG/160MG D.S. TABLET ONE (13:27)
[2018-09-30 13:34] VITALS: BP 150/72; PULSE 86; TEMP 98.7
== END 2018-09-30 14:07 | disposition home or self-care (01) ==
LOC: JERFT 10:42 → JER 10:42
DX: N39.0 Urinary tract infection, site not specified (principal); B96.89 Other specified bacterial agents as the cause of diseases classified elsewhere; I25.10 Atherosclerotic heart disease of native coronary artery without angina pectoris; Z98.61 Coronary angioplasty status; I10 Essential (primary) hypertension; I25.2 Old myocardial infarction; I51.81 Takotsubo syndrome; E11.9 Type 2 diabetes mellitus without complications; Z79.84 Long term (current) use of oral hypoglycemic drugs; E78.00 Pure hypercholesterolemia, unspecified; Z86.73 Personal history of transient ischemic attack (TIA), and cerebral infarction without residual deficits
CPT/HCPCS: 81003; 81015; 87086; 87186; 99282-25